=== PATIENT | male | born 1945 | race Caucasian/White ===

== ENCOUNTER → 2020-11-09 11:45 | Outpatient (BNVA) | payer OTHER, SELFPAY | PROVIDERS: Family Provider Family Medicine; PCP Family Medicine; Visit Provider Family Medicine | DX: N18.9 Chronic kidney disease, unspecified (principal) | CPT/HCPCS: 81000 ==

== ENCOUNTER 2021-08-03 13:20 | Emergency (ER) | payer OTHER, SELFPAY ==
[2021-08-03 13:25] VITALS: BP 147/79; PULSE 88; RESP 15; TEMP 36.8; O2SAT 98; BMI 14.3
--- NOTE | 2021-08-03 14:04 | CT_ITS ---
WS: [id number] CT HEAD TECHNIQUE: Noncontrast CT of the head obtained from the skullbase to the vertex. CLINICAL INFORMATION: eval for stroke COMPARISON: None. DLP: 753.[address] scans at [facility] use at least one of these dose optimization techniques: automated e xposure control; mA and/or kV adjustment per patient size (includes targeted exams where dose is matc hed to clinical indication); or iterative reconstruction. FINDINGS: No evidence of intracranial hemorrhage or mass effect. Ventricular system and basal cisterns are lee nt. Moderate small vessel changes with moderate parenchymal volume loss. Chronic infarcts involving t he right frontal parietal junction, right frontal lobe laterally, and bilateral left greater than rig ht occipital lobes with encephalomalacia.Chronic lacunar infarcts in the left jones radiata, bilater al caudate, bilateral basal ganglia and thalami. No extra-axial fluid collections. No evidence of mas s or mass effect. Intracranial vascular calcification. Left maxillary sinusitis. Mastoid air cells are well aerated. CT/CT head wo con* [id number] IMPRESSION: 1. No evidence of intracranial hemorrhage or mass effect. 2. Moderate small vessel changes. Moderate parenchymal volume loss. 3. Chronic infarcts involving the right frontal parietal junction right fronta l lobe laterally and bilateral left greater than right occipital lobes. 4. Numerous chronic lacunar infarcts described above. 5. Left maxillary sinusitis.
--- NOTE | 2021-08-03 14:04 | ECG_ITS ---
[facility] Test Date: 2021-08-03 Pat Name: Baylee Sierra Department: Room: Gender: Male [employer]: : 1945 Requested By: Hong Fulton Order Number: [id number] Mari MD: Nico Collado M.D. Measurements Intervals Perry Rate: 87 P: 53 MN: 106 QRS: 56 QRSD: 75 T: 74 QT: 346 QTc: 417 Interpretive Statements SINUS RHYTHM WITH SINUS ARRHYTHMIA WITH SHORT MN INTERVAL No previous ECG available for comparison Electronically Signed On 08-03-2021 19:58:42 SUPERVISOR WHIPPED TOPPING by Nico Collado M.D. [id number]
--- NOTE | 2021-08-03 14:12 | PM.SAN ---
Stroke Alert Activation ED Arrival Date: 08/03/21 ED Arrival Time: 13:25 Other Last Known Well Infomation: Dr. Fulton called me to the emergency department to evaluate this 76-year-old man who was sent from the [facility] with a stroke. Dr. Valerio said that initially he thought that the patient had an acute stroke and wanted me to evaluate the patient for tPA. After he called me to the ER he thought that perhaps the symptoms were of longer duration. In fact the patient says that his right-sided weakness started at 10 AM yesterday. He said that [facility] was called to the [place] [facility] to pick him up but he refused to get in the helicopter and so they called the ambulance today and he agreed to be evaluated. He does not know why he is on hospice. He does not know why he lives in [place]. 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 Normally he cannot walk. On examination the patient has right hemiparesis but he cannot move either of his legs. His speech is clear. He has residual use of the right hand with a strong plate gauger and he can extend his fingers but has no proximal strength in the right arm at all. It is difficult to evaluate his sensory exam as he does not feel pinprick on either of his legs below the knees and he cannot feel pinprick in the left arm. This gentleman is profoundly cachectic. 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 He says that he has not been able to walk for longer than he can remember. On exam he is moderately demented but does know that his stroke started yesterday. There is no role for intervention on this patient. He should have a CAT scan to make sure he does not have a brain tumor. Stroke Alert Activated by: dr. Fulton Stroke Alert Activation Time: 13:31 Critical Care Time Critical Care Time: less than 30 mins A&P Assessment and plan (1) Left middle cerebral artery stroke: He is probably having an acute subcortical stroke but it is difficult to know since he has not had a CAT scan yet. I asked Dr. Valerio to go ahead with a CAT scan to make sure that this patient does not have a large metastasis that might influence his future decisions. There is no role for any intervention for ischemic stroke at this time. I advised the patient that we will send him back to the [place] [facility] soon. 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
[2021-08-03 14:14] VITALS: BP 123/71; PULSE 92; RESP 14; O2SAT 99
--- NOTE | 2021-08-03 14:14 | W.ED.GENADLT ---
HPI - General Adult General: Chief complaint: Neuro Symptoms/Deficit Stated complaint: R SIDED PARALYSIS Time Seen by Provider: 08/03/21 13:24 History of Present Illness: HPI narrative: Patient is a 76-year-old male with a history of failure to thrive, COPD, currently on hospice with DNR presenting to emergency room for concerns of 1 day of right-sided weakness. Patient tells me that symptoms of right arm and leg weakness started at 10 AM yesterday. Since then, patient has not been able to move the R arm and R leg. Patient called [facility] initially but decided not to come to the emergency room. Patient today decided to come to the emergency room and called EMS. On arrival, patient denies any chest pain, shortness of breath, nausea/vomiting, diarrhea melena hematochezia. No diplopia, slurring of speech, dysphagia, difficulty speaking speaking, or facial droop Onset:1 day ago Duration:ongoing Location:home Severity:moderate Associated symptoms: Deny chest pain, dyspnea, nausea, rash, palpitations or vomiting Review of Systems Const: Denies: fever(s) or chills Eyes: Denies: change in vision ENMT: Denies: mouth pain Card: Denies: chest pain or palpitations Resp: Denies: dyspnea or non-productive cough GI: Denies: abdominal pain, nausea, vomiting or diarrhea : Denies: dysuria Musc: Denies: extremity pain Skin/Breast: Denies: rash or new lesions Neuro: Reports: weakness in extremities (+R arm and leg weakness) Psych: Reports: other (Normal mood) Michelet/Lymph: Denies: easy bruising PFS ED PFSH: Medical History (Updated 08/03/21 @ 16:25 by Earnest Rutledge MD) CAD (coronary artery disease) Surgical History (Updated 08/03/21 @ 16:25 by Earnest Rutledge MD) No pertinent past surgical history Social History Smoking and tobacco status: former smoker Alcohol intake: never Substance/Drug Use: never Physical Exam Const: COMMON NORMALS: patient oriented x3 HENMT: COMMON NORMALS: atraumatic HEAD & SCALP: atraumatic MOUTH: moist mucous membranes not abnormal Eye: COMMON NORMALS: EOMs intact bilaterally and conjunctivae normal CONJUNCTIVA: Yes conjunctivae normal Neck/C-Spine: COMMON NORMALS: full ROM and supple Resp: COMMON NORMALS: normal respiratory effort and clear to auscultation bilaterally AUSCULTATION: clear to auscultation bilaterally Cardio: COMMON NORMALS: regular rate RATE: regular rate GI: COMMON NORMALS: Soft to palpation and non-tender PALPATION: Yes Soft to palpation Extremity: COMMON NORMALS: full ROM Neuro: COMMON NORMALS: patient oriented x3 OTHER: Mental status? Awake, alert, and oriented to self, year, month, location, and situation.? Following simple axial and appendicular commands.? Has appropriate fund of knowledge, comprehension, and insight.? Able to recall and understands pertinent aspects of medical history and current treatment status.? ? Language? Speech is fluent without word-finding difficulties.? Intact naming, expression, medical receptionist assistant, and repetition.? ? Cranial nerves? 2,3,4,6: PERRL, EOMI with no nystagmus. 5: Intact sensation to light touch, symmetric? 7: Smile symmetrical, no facial droop.? 8: Hearing grossly intact.? 9,10: Normal palate movement.? 11: Normal strength in trapezius bilaterally 12: Tongue protrudes midline.? ? Motor examination? Normal bulk & tone. Strength as follows (R/L): Delts (3/5), Biceps (3/5), Triceps (3/5), Wrist ext (3/5), hip flexors (0/3), plantarflexors (0/3), dorsiflexors (0/3). ? Sensation? Light Touch: Grossly intact and equal in upper and lower extremities bilaterally? Romberg: Negative.? Distal joint position sense intact ? Coordination? [id number]-uzca-finger movements intact without dysmetria or past-pointing.? Rapid fingertaps: preserved amplitude without decriment.? No tremor, myoclonus or truncal ataxia.? ? Gait/stance? Steady, normal narrow base gait with appropriate arm swing and turning.? Tandem gait without hesitation or loss of balance. Psych: COMMON NORMALS: speech normal SPEECH: Yes normal speech MOOD & AFFECT: Yes euthymic mood Course Vital Signs: Vital signs: Vital Signs Temperature 98.2 F 08/03/21 13:25 Pulse Rate 92 08/03/21 14:14 Respiratory Rate 14 08/03/21 14:14 Blood Pressure 123/71 08/03/21 14:14 Pulse Oximetry 99 08/03/21 14:14 MDM - General Adult MDM Narrative: Medical decision making narrative: Patient is a 76-year-old male with history of failure to thrive, COPD, DNR on hospice who presents emergency room with complaints of new onset of right-sided weakness since yesterday morning at 10 AM. On exam, patient has 3 out of 5 strength in the right upper extremity and 0-5 strength in right lower questionably. Patient has 3 out of 5 strength in the left lower extremity. No other findings on neurological exam. Can demonstrate strokelike symptoms however is outside the window for tPA. Workup: CBC, CMP, Lipase, UA, CT head Case immediately discussed with Dr. Hutchison who assessed patient at bedside at 2 PM. Since patient has hospice, Dr. Seo recommends CT scan with outpatient medical management this time. I have given patient follow up with our corrections caseworker to be seen by our outpatient Dr. Hutchison for stroke management. Patient aware of a call from our corrections caseworker to schedule for appointment(s) and verbalizes understanding of the importance of following up. Workup showed 15.1 no baseline to compare to patient has a troponin 27 initially. No complaints of chest pain. EKG is nonischemic. Given strokelike symptoms, patient's DNR status, I have discussed case with patient as well as [facility]. I performed shared decision-making with patient regarding admission versus discharge today, and patient prefers to be discharged. I explained the risks of leaving the hsopital today including worsening stroke like symptoms for the next few days. Patient verbalizes understanding of these discussed risk and elect for the alternative of leaving today with close follow up with Dr. Hutchison and outpatient medical amangement of stroke. Patient verbalizes understanding to return for any worsening symptoms including worsening stroke symptoms, vision changes, facial droop, slurring of speech or any new or concerning issues. Rx atorvastatin 80mg daily, aspiring 325mg daily, and plavix 75mg daily for storke Disposition: Discharge Lab Data: Labs: Lab Results 08/03/21 08/03/21 08/03/21 14:28 14:28 14:28 WBC 15.1 10^3/uL H 10 ^3/uL (4.0-10.0) RBC 4.28 10^6/uL 10^6 /uL (4.1-5.3) Hgb 12.8 g/dL g/dL (11.7-16.6) Hct 37.7 % L % (42.0-52.0) MCV 88.1 fl fl (80-94) MCH 29.9 pg pg (28.0-34.0) MCHC 34.0 g/dL g/dL (30.0-36.0) RDW 13.3 % % (12.1-15.1) Plt Count 200 10^3/cmm 10^3 /cmm (130-400) MPV 9.5 fL fL (7.4-10.4) Neut % (Auto) 63.4 % % Lymph % (Auto) 13.2 % % Gentry % (Auto) 8.5 % % Eos % (Auto) 14.2 % % Baso % (Auto) 0.4 % % Neut # (Auto) 9.57 10^3/uL H 10 ^3/uL (1.8-7.7) Lymph # (Auto) 2.0 10^3/uL 10^3/ uL (0.8-4.8) Gentry # (Auto) 1.3 10^3/uL H 10^ 3/uL (0.2-0.9) Eos # (Auto) 2.1 10^3/uL H 10^ 3/uL (0.0-0.8) Baso # (Auto) 0.1 10^3/uL 10^3/ uL (0.0-0.1) Nucleated RBC % (a uto) 0 % % Nucleated RBCs # 0.0 /100WBC /100W BC Sodium 131 mmol/L L mmol /L (136-145) Potassium 4.4 mmol/L mmol/L (3.5-5.1) Chloride 96 mmol/L L mmol/ L (98-107) Carbon Dioxide 23 mmol/L mmol/L (22-29) Anion Gap 16.4 (5-19) BUN 19 mg/dL mg/dL (8-23) Creatinine 0.5 mg/dL L mg/dL (0.7-1.2) GFR Calculation Not Reportable Glucose 94 mg/dL mg/dL (65-115) Calculated Osmolal ity 274 mOsm/kg L mOs m/kg (285-295) Calcium 8.6 mg/dL mg/dL (8.5-10.5) Total Bilirubin 0.4 mg/dL mg/dL (0.15-1.2) AST 16 U/L U/L (0-40) ALT 14 U/L U/L (0-41) Alkaline Phosphata se 116 IU/L IU/L (40-130) Troponin T Baselin e 29 ng/L H ng/L (0-15) Total Protein 6.2 g/dL L g/dL (6.6-8.7) Albumin 3.6 g/dL g/dL (3.5-5.2) Globulin 2.6 g/dL g/dL (1.3-4.6) Lipase 22 U/L U/L (13-60) Imaging Data^: Other Imaging: Radiologist's impression: [address] [id number] Scan ReportSigned Patient: Agnes Sierra #: [id number]: 5Acct#:[id number]/Sex: 76 / MADM Date: 08/03/21Loc: ERRoom/Bed:Attending Dr: Ordering Provider/Ordering MD: Hong Fulton MD Date of Service: 08/03/21 Procedure(s): CT head wo con* [id number] Accession Number(s): [id number] Report Number: [id number] WS: [id number] CT HEAD TECHNIQUE: Noncontrast CT of the head obtained from the skullbase to the vertex. CLINICAL INFORMATION: eval for stroke COMPARISON: None. DLP: 753.[address] [facility] use at least one of these dose optimization techniques: automated exposure control; mA and/or kV adjustment per patient size (includes targeted exams where dose is matched to clinical indication); or iterative reconstruction. FINDINGS: No evidence of intracranial hemorrhage or mass effect. Ventricular system and basal cisterns are patent. Moderate small vessel changes with moderate parenchymal volume loss. Chronic infarcts involving the right frontal parietal junction, right frontal lobe laterally, and bilateral left greater than right occipital lobes with encephalomalacia.Chronic lacunar infarcts in the left jones radiata, bilateral caudate, bilateral basal ganglia and thalami. No extra-axial fluid collections. No evidence of mass or mass effect. Intracranial vascular calcification. Left maxillary sinusitis. Mastoid air cells are well aerated. CT/CT head wo con* [id number] IMPRESSION: 1. No evidence of intracranial hemorrhage or mass effect. 2. Moderate small vessel changes. Moderate parenchymal volume loss. 3. Chronic infarcts involving the right frontal parietal junction right frontal lobe laterally and bilateral left greater than right occipital lobes. 4. Numerous chronic lacunar infarcts described above. 5. Left maxillary sinusitis. Dictated By:Howard Ralph MDSigned By:Howard Ralph MDSigned Date/Time:08/03/21 1514DD/ 1504 Discharge Plan Discharge Patient Disposition: Home Clinical Impression: Stroke, Right sided weakness Condition: Stable Prescriptions: New Plavix 75 mg tablet 75 mg PO DAILY 30 Days Qty: 30 RF: 0 aspirin 325 mg tablet 325 mg PO DAILY 30 Days Qty: 30 RF: 0 atorvastatin 80 mg tablet 80 mg PO DAILY 30 Days Qty: 30 RF: 0 No Action multivitamin Tablet 1 tab PO DAILY RF: 0 acetaminophen 325 mg Tablet 650 mg PO Q4H PRN (Reason: Pain) RF: 0 bisacodyl 10 mg Suppository 10 mg [place] DAILY PRN (Reason: Constipation) RF: 0 budesonide 0.5 mg/2 mL Suspension For Nebulization 0.5 mg INHALATION BID PRN (Reason: Shortness Of Breath) RF: 0 folic acid 1 mg Tablet 1 mg PO DAILY RF: 0 montelukast 10 mg Tablet 10 mg PO DAILY RF: 0 Milk of Magnesia 800 mg/5 mL Suspension 800 mg PO DAILY PRN (Reason: Constipation) RF: 0 bisacodyl 5 mg Tablet 20 mg PO DAILY PRN (Reason: Constipation) RF: 0 metoprolol tartrate 25 mg Tablet 12.5 mg PO BID RF: 0 Eliquis 5 mg Tablet 5 mg PO BID RF: 0 Discharge Orders: Discharge ED (Routine); Ordered 08/03/21 Ordered By: Hong Fulton Discharge Diet: Advance as tolerated Discharge Activity: Increase activity as tolerated Patient Instructions: Stroke (DC) Activity Restrictions/Additional Instructions: Our corrections caseworker will have you follow-up with Dr. Hutchison in the next few days for stroke like symptoms. You would be expected to have a phone call with our corrections caseworker who will put you on the schedule. Come back to the emergency room if you have any new or concerning complaints including worsening strokelike symptoms, weakness, any new EXTR complaints. Take your medicine as instructed. Coding Level of Care Code ED Director Of Sustainability Programs for Alysia [facility] Exam Comprehensive
[2021-08-03 14:38] LABS: Basophils # 0.1 10^3/uL (0.0-0.1); Basophils % 0.4 %; Eosinophils # 2.1 10^3/uL (0.0-0.8); Eosinophils % 14.2 %; Hematocrit 37.7 % (42.0-52.0); Hemoglobin 12.8 g/dL (11.7-16.6); Lymphocytes % 13.2 %; Mean Corpuscular Hemoglobin 29.9 pg (28.0-34.0); Mean Corpuscular Volume 88.1 fl (80-94); Mean Platelet Volume 9.5 fL (7.4-10.4); Monocytes # 1.3 10^3/uL (0.2-0.9); Monocytes % 8.5 %; Neutrophils # 9.57 10^3/uL (1.8-7.7); Neutrophils % 63.4 %; Nucleated Red Blood Cells % 0 %; Platelet Count 200 10^3/cmm (130-400); Red Blood Count 4.28 10^6/uL (4.1-5.3); Red Cell Distribution Width 13.3 % (12.1-15.1); White Blood Count 15.1 10^3/uL (4.0-10.0)
--- NOTE | 2021-08-03 14:54 | DCPLANNER ---
Addendum entered by Arline Bowser 08/26/21 12:47: Clinic has been unable to reach patient at this time to schedule an appointment. Original Note: manager transport had message to schedule a follow up appointment for patient with Dr. Hutchison. manager transport emailed patients information to the neurology clinic. Patients information will be printed and reviewed. Clinic will call patient with appointment information.
[2021-08-03 15:04] LABS: Troponin(5th) Baseline 29 ng/L (0-15)
[2021-08-03 15:05] LABS: Alanine Aminotransferase 14 U/L (0-41); Albumin Level 3.6 g/dL (3.5-5.2); Alkaline Phosphatase 116 IU/L (40-130); Anion Gap 16.4 (5-19); Aspartate Amino Transferase 16 U/L (0-40); Blood Urea Nitrogen 19 mg/dL (8-23); Calcium 8.6 mg/dL (8.5-10.5); Carbon Dioxide 23 mmol/L (22-29); Chloride 96 mmol/L (98-107); Globulin 2.6 g/dL (1.3-4.6); Glucose 94 mg/dL (65-115); Lipase 22 U/L (13-60); Osmolality Calculated 274 mOsm/kg (285-295); Potassium 4.4 mmol/L (3.5-5.1); Sodium 131 mmol/L (136-145); Total Bilirubin 0.4 mg/dL (0.15-1.2); Total Protein 6.2 g/dL (6.6-8.7)
--- NOTE | 2021-08-03 16:24 | PM.HP ---
Providers/Chief Complaint Chief Complaint: R SIDED PARALYSIS History of Present Illness Baylee Sierra is a 76 year old male with a past medical history of CAD, CVA, dementia, failure to thrive who presents to [facility] due to right-sided deficits. Patient is alert to person, to place, to the year to the month, to the president, he tells me that at the long-term he is wheelchair-bound, cannot ambulate, requires assistance for activities of daily living, no recent falls, currently on hospice for many years for the heart he presumes. He tells me that yesterday he started to notice right-sided deficits, right arm weakness, right leg weakness, normally he tells me both legs are weak, normally can ambulate, but since yesterday he started to notice that the right side right arm was much more weak. No slurring of his words, no facial droop, no loss of vision, no dizziness. He tells me his symptoms started yesterday, at roughly 10 or so, not sure about the exact time, air EVAC was called to the long-term but he refused to get in the helicopter, so today he called the ambulance and he agreed to be evaluation due to persistent right-sided weakness. Denies any chest pain, no palpitations, no history of atrial fibrillation, does not take any medication at the long-term. In the emergency room, he was found to have right-sided deficits, right upper right lower extremity weakness, right-sided hemiparesis, does have left-sided weakness also, unable to have significant motion of the left lower extremity, does have motion of the left upper extremity, CT of the head did not show acute stroke, but did show Chronic infarcts involving the right frontal parietal junction right frontal lobe laterally and bilateral left greater than right occipital lobes.Chronic lacunar infarcts in the left jones radiata, bilateral caudate, bilateral basal ganglia and thalami. During my examination, patient's NIH stroke scale NIH stroke scale 10, out of tPA window. EKG no acute ST-T wave changes. -I discussed with patient that he has had a prior history of strokes, now seems like he has had a left MCA stroke with right-sided hemiparesis. Based upon what I can see on his CAT scan and his current symptomatology they seem like embolic phenomenon, possibly related to atrial fibrillation. He denies a history of atrial fibrillation in the past. Denies being on blood thinners. I advised patient that as he is on hospice what he wants us to do is entirely up to him. It would be my recommendation as he is on hospice and that is he is DNR/DNI, and he does not want to have any aggressive interventions, no aggressive testing, no PT OT for a stroke, we should just medically manage him. With aspirin, Plavix, statin. Certainly there is a possibility he had an embolic phenomenon, and there could be consideration of placing him on Eliquis. However given his age, his risk factors, he does have significant bleeding, and as he is on hospice in my mind the risks would outweigh the benefit. However I left the option up to him of what he wanted me to do, and for now he declines aggressive interventions, so for now I will hold off on putting him on Eliquis. I also discussed inpatient admission, I advised him that I could admit him, monitor for the next 24 hours, and do additional testing. However as he is hospice, DNR/DNI, does not want to have aggressive interventions aggressive testing, in my opinion he would not yield a better option. Nonetheless I have acted in his best interest, and given him 2 options to go back to [facility] on hospice aspirin, Plavix, statin, blood pressure monitoring, oral hydration. The other option was inpatient admission for monitoring. After discussing the risks and benefits of all options, he voices any, all questions doctor, he was adamant that he wanted to go back to the long-term, but did not want to go on Air-[facility]ac want to go in a ambulance. I will discharge him on aspirin 81 mg, Plavix 85 mg, statin atorvastatin 80 mg. Instructions to monitor blood pressure for the next 48 hours, allow for permissive hypertension. Generous oral hydration. I also try to reach out to patient's DPOA, however there is no number in the chart, nor did the long-term have a direct number. Review of Systems Const: Denies: fever(s) Card: Denies: chest pain Resp: Denies: dyspnea GI: Denies: abdominal pain Medications/Allergies Home Medications Medication Instructions Recorded Confirmed Last Taken Type acetaminophen 650 mg PO Q4H PRN 08/03/21 08/03/21 Unknown History apixaban [Eliquis] 5 mg PO BID 08/03/21 08/03/21 Unknown History aspirin 325 mg PO DAILY 30 Days #30 tab 08/03/21 Unknown Rx atorvastatin 80 mg PO DAILY 30 Days #30 tab 08/03/21 Unknown Rx bisacodyl 10 mg WI DAILY PRN 08/03/21 08/03/21 Unknown History bisacodyl 20 mg PO DAILY PRN 08/03/21 08/03/21 Unknown History budesonide 0.5 mg INHALATION BID PRN 08/03/21 08/03/21 Unknown History clopidogrel [Plavix] 75 mg PO DAILY 30 Days #30 tab 08/03/21 Unknown Rx folic acid 1 mg PO DAILY 08/03/21 08/03/21 Unknown History magnesium hydroxide [Milk of 800 mg PO DAILY PRN 08/03/21 08/03/21 Unknown History Magnesia] metoprolol tartrate 12.5 mg PO BID 08/03/21 08/03/21 Unknown History montelukast 10 mg PO DAILY 08/03/21 08/03/21 Unknown History multivitamin 1 tab PO DAILY 08/03/21 08/03/21 Unknown History Allergies Allergy/AdvReac Type Severity Reaction Status Date / Time No Known Allergies Allergy Unverified 08/03/21 16:06 PFSH Acute PFSH: Medical History (Updated 08/03/21 @ 16:25 by Earnest Rutledge MD) CAD (coronary artery disease) Surgical History (Updated 08/03/21 @ 16:25 by Earnest Rutledge MD) No pertinent past surgical history Social History (Updated 08/03/21 @ 16:26 by Earnest Rutledge MD) Smoking and tobacco status: former smoker Alcohol intake: never Substance/Drug Use: never Vitals/I&O/Wt Last Vital Signs Temp 98.2 F 08/03/21 13:25 Pulse 92 08/03/21 14:14 Resp 14 08/03/21 14:14 BP 123/71 08/03/21 14:14 Pulse Ox 99 08/03/21 14:14 Weight last 48 hrs Weight 41.73 kg Physical Exam Narrative: EXAM NARRATIVE: Protein calorie malnutrition, muscle wasting, cachexia Const: COMMON NORMALS: no acute distress ORIENTATION/CONSCIOUSNESS: Yes awake, Yes oriented to person and Yes oriented to place; not oriented to time Resp: COMMON NORMALS: normal respiratory effort, No retractions, No use of accessory muscles and clear to auscultation bilaterally Cardio: COMMON NORMALS: regular rate, regular rhythm, S1 normal heart sound present and S2 normal heart sound present GI: COMMON NORMALS: Normal to inspection, nondistended, normoactive bowel sounds present, Soft to palpation and non-tender Neuro: OTHER: Right lower extremity strength 0 out of 5 Left lower extremity strength 1 out of 5, equal able to wiggle his toes Left upper extremity strength, 4 out of 5 Right upper extremity strength 0 out of 5 No facial droop that I can notice No slurring of his words No visual field deficits NIH stroke scale 0 Data : 08/03/21 14:28 08/03/21 14:28 A&P Assessment and plan (1) Stroke: Status: Acute (2) Right sided weakness: Status: Acute (3) Left middle cerebral artery stroke: Status: Acute (4) CAD (coronary artery disease): Status: Acute Attestations Medical Necessity Statement*: Patient will be discharged to the emergency room for CVA Coding Level of Care Code Acute Glass Checker for Alysia Shah Diagnoses Stroke I63.9 Right sided weakness R53.1 Left middle cerebral artery stroke I63.512 CAD (coronary artery disease) I25.10
[2021-08-03 18:40] VITALS: BP 156/47; PULSE 65; RESP 15; O2SAT 99
[2021-08-03 19:37] VITALS: BP 151/94; PULSE 104; O2SAT 98
== END 2021-08-03 19:40 | disposition home or self-care (01) ==
PROVIDERS: Emergency Provider Emergency Medicine
DX: I63.9 Cerebral infarction, unspecified (principal); G81.91 Hemiplegia, unspecified affecting right dominant side; Z79.01 Long term (current) use of anticoagulants; I25.10 Atherosclerotic heart disease of native coronary artery without angina pectoris; Z87.891 Personal history of nicotine dependence
CPT/HCPCS: 70450; 80053; 83690; 84484; 85025; 93005; 99284

== ENCOUNTER 2021-08-15 09:36 | Emergency (ER) | payer MEDICARE, SELFPAY ==
[2021-08-15 09:49] VITALS: BMI 19.5
--- NOTE | 2021-08-15 10:02 | W.ED.EPISTAX ---
HPI - Epistaxis General: Chief complaint: Epistaxis Stated complaint: NOSEBLEED Time Seen by Provider: 08/15/21 09:37 History of Present Illness: HPI Narrative: 76-year-old male brought in by EMS from local [place] [facility] with complaint of epistaxis evidently had 2 episodes this morning when he arrived here he was not having any active bleeding EMS reports he was with a when they encountered him at the [place] [facility]. Patient is on aspirin Eliquis and Plavix at this time. He states has not had problems with epistaxis in the past. History of coronary artery disease and a previous CVA earlier this month.There is discussion of the H&P at the time of admission about whether or not to put him on Eliquis and initially it looks like they had decided not to have however it is listed on his medication list. Earlier this month when he came in he been having symptoms of his stroke for almost 24 hours and ultimately decided to send him back to the [place] [facility]. He is on hospice he is at the [facility] for failure to thrive. complaint: epistaxis Location: bilateral nostril Onset (ago): minute(s) Duration: constant Context: history of previous Associated symptoms: Deny fever(s) or vomiting Review of Systems Const: Denies: fever(s), chills, body aches, change in appetite, fatigue or malaise ENMT: Denies: throat pain, ear or mastoid pain, nasal discharge or nasal congestion Card: Denies: chest pain, edema, dyspnea on exertion or orthopnea Resp: Denies: dyspnea, productive cough or non-productive cough GI: Denies: abdominal pain, nausea, vomiting, hematemesis, coffee ground emesis, diarrhea, constipation, bloating, hematochezia or melena : Denies: flank pain, dysuria, urinary frequency or urinary urgency Skin/Breast: Denies: rash or pruritus PFSH ED PFSH: Medical History (Updated 08/15/21 @ 10:21 by Jesse Obregon DO) CAD (coronary artery disease) Left middle cerebral artery stroke Surgical History (Updated 08/03/21 @ 16:25 by Earnest Rutledge MD) No pertinent past surgical history Social History (Updated 08/03/21 @ 16:26 by Earnest Rutledge MD) Smoking and tobacco status: former smoker Alcohol intake: never Physical Exam Const: GENERAL APPEARANCE: cooperative and comfortable ORIENTATION/CONSCIOUSNESS: Yes awake HENMT: COMMON NORMALS: normocephalic, atraumatic, hearing grossly normal bilaterally, external ears normal, EAC's normal, TM's normal bilaterally, Normal nasal mucous membranes and turbinates present, moist oral mucous membranes and oropharynx normal HEAD & SCALP: normocephalic and atraumatic NOSE: Normal nasal mucous membranes and turbinates present EXTERNAL EAR: Yes external ears normal EXTERNAL AUDITORY CANAL: EAC's normal TYMPANIC MEMBRANE: TM's normal bilaterally Neck/C-Spine: COMMON NORMALS: full ROM, no lymphadenopathy, supple and no JVD Lymph: LYMPHATIC: no lymphadenopathy noted and no lymphedema noted Resp: COMMON NORMALS: normal respiratory effort, No retractions, No use of accessory muscles and clear to auscultation bilaterally AUSCULTATION: clear to auscultation bilaterally Cardio: COMMON NORMALS: no JVD, regular rate, regular rhythm and No murmurs present (Cardio) RATE: regular rate RHYTHM: regular rhythm GI: COMMON NORMALS: Soft to palpation and No hepatosplenomegaly present AUSCULTATION: Yes normoactive bowel sounds PALPATION: Yes Soft to palpation, No Tenderness to palpation present (GI), No Guarding due to palpation present (GI) and Yes No hepatosplenomegaly present Extremity: COMMON NORMALS: normal to inspection, capillary refill normal, no clubbing, cyanosis or edema, no calf tenderness and no pedal edema Skin: COMMON NORMALS: no rashes or lesions noted GENERAL SKIN EXAM: no rashes or lesions noted MDM - Epistaxis MDM Narrative: Medical decision making narrative: White count is 17 7 however patient has no specific complaints chest x-ray is unremarkable. Patient has no other complaints at this time. We will go and use mupirocin nasally twice a day for 14 days discontinue his Eliquis. There is some debate whether or not to start him on it to begin with the time of the stroke think the triple therapy is causing the epistaxis we will put him back just to double therapy with aspirin and Plavix. Patient is on hospice and is a Do Not Recussitate at the [facility] [place] [facility]. Lab Data: Labs: Lab Results 08/15/21 10:35 WBC 17.7 10^3/uL H 10 ^3/uL (4.0-10.0) RBC 3.75 10^6/uL L 10 ^6/uL (4.1-5.3) Hgb 11.0 g/dL L g/dL (11.7-16.6) Hct 32.2 % L % (42.0-52.0) MCV 85.9 fl fl (80-94) MCH 29.3 pg pg (28.0-34.0) MCHC 34.2 g/dL g/dL (30.0-36.0) RDW 13.0 % % (12.1-15.1) Plt Count 294 10^3/cmm 10^3 /cmm (130-400) MPV 8.5 fL fL (7.4-10.4) Neut % (Auto) 60.7 % % Lymph % (Auto) 18.5 % % [place] % (Auto) 9.1 % % Eos % (Auto) 10.7 % % Baso % (Auto) 0.3 % % Neut # (Auto) 10.76 10^3/uL H 1 0^3/uL (1.8-7.7) Lymph # (Auto) 3.3 10^3/uL 10^3/ uL (0.8-4.8) [place] # (Auto) 1.6 10^3/uL H 10^ 3/uL (0.2-0.9) Eos # (Auto) 1.9 10^3/uL H 10^ 3/uL (0.0-0.8) Baso # (Auto) 0.1 10^3/uL 10^3/ uL (0.0-0.1) Nucleated RBC % (a uto) 0 % % Nucleated RBCs # 0.0 /100WBC /100W Discharge Plan Discharge Patient Disposition: Home Clinical Impression: Epistaxis, Left middle cerebral artery stroke, CAD (coronary artery disease) Condition: Stable Prescriptions: New mupirocin 2 % ointment 1 applic topical BID 14 Days Qty: 22 RF: 0 Discontinued Eliquis 5 mg Tablet 5 mg PO BID RF: 0 No Action multivitamin Tablet 1 tab PO DAILY RF: 0 acetaminophen 325 mg Tablet 650 mg PO Q4H PRN (Reason: Pain) RF: 0 bisacodyl 10 mg Suppository 10 mg [place] DAILY PRN (Reason: Constipation) RF: 0 budesonide 0.5 mg/2 mL Suspension For Nebulization 0.5 mg INHALATION BID PRN (Reason: Shortness Of Breath) RF: 0 folic acid 1 mg Tablet 1 mg PO DAILY RF: 0 montelukast 10 mg Tablet 10 mg PO DAILY RF: 0 Milk of Magnesia 800 mg/5 mL Suspension 800 mg PO DAILY PRN (Reason: Constipation) RF: 0 bisacodyl 5 mg Tablet 20 mg PO DAILY PRN (Reason: Constipation) RF: 0 metoprolol tartrate 25 mg Tablet 12.5 mg PO BID RF: 0 Plavix 75 mg tablet 75 mg PO DAILY 30 Days Qty: 30 RF: 0 aspirin 325 mg tablet 325 mg PO DAILY 30 Days Qty: 30 RF: 0 atorvastatin 80 mg tablet 80 mg PO DAILY 30 Days Qty: 30 RF: 0 Discharge Orders: Discharge ED (Routine); Ordered 08/15/21 Ordered By: Jesse Obregon Discharge Diet: Usual diet Discharge Activity: Resume usual activity Patient Instructions: Opioid Safety Activity Restrictions/Additional Instructions: Stop Eliquis continue aspirin and Plavix. Coding Level of Care Code ED Audio/Visual Manager for Sergg Fwd Exam Comprehensive
[2021-08-15 10:43] LABS: Basophils # 0.1 10^3/uL (0.0-0.1); Basophils % 0.3 %; Eosinophils # 1.9 10^3/uL (0.0-0.8); Eosinophils % 10.7 %; Hematocrit 32.2 % (42.0-52.0); Lymphocytes # 3.3 10^3/uL (0.8-4.8); Lymphocytes % 18.5 %; Mean Corpuscular HGB Conc 34.2 g/dL (30.0-36.0); Mean Corpuscular Hemoglobin 29.3 pg (28.0-34.0); Mean Corpuscular Volume 85.9 fl (80-94); Mean Platelet Volume 8.5 fL (7.4-10.4); Monocytes # 1.6 10^3/uL (0.2-0.9); Monocytes % 9.1 %; Neutrophils # 10.76 10^3/uL (1.8-7.7); Neutrophils % 60.7 %; Nucleated Red Blood Cells % 0 %; Platelet Count 294 10^3/cmm (130-400); Red Blood Count 3.75 10^6/uL (4.1-5.3); White Blood Count 17.7 10^3/uL (4.0-10.0)
--- NOTE | 2021-08-15 10:47 | XR_ITS ---
WS: [id number] PORTABLE CHEST HISTORY: dyspnea/cough COMPARISON: 08/04/2012 Lungs are clear. Mild hyperexpansion. No pleural effusion or pneumothorax. Cardiac size: Normal. Mediastinum/Aorta: Mild atherosclerosis aorta. Osteopenia. XR/XR chest 1V portable [id number] IMPRESSION: 1. No pneumonia. 2. Moderate atherosclerosis aorta.
--- NOTE | 2021-08-15 11:25 | PC.NURSE ---
SETUP TRANSPORTATION WITH MEDICAID TRANSPORT TRIP NUMBER [id number]
--- NOTE | 2021-08-15 11:51 | PC.NURSE ---
REPORT TO NIA AT THE [facility] ADVISED OF TRIP NUMBER
== END 2021-08-15 14:37 | disposition home or self-care (01) ==
PROVIDERS: Emergency Provider Family Medicine
DX: R04.0 Epistaxis (principal); I25.10 Atherosclerotic heart disease of native coronary artery without angina pectoris; I63.89 Other cerebral infarction; Z79.02 Long term (current) use of antithrombotics/antiplatelets; Z79.82 Long term (current) use of aspirin; Z87.891 Personal history of nicotine dependence
CPT/HCPCS: 71045; 85025; 99283